=== PATIENT | female | born 1990 | race Caucasian/White ===

== ENCOUNTER 2021-02-11 13:05 | Emergency (ER) | payer OTHER ==
[~2021-02-11 13:05] MED LIST: PERCOCET 5-3251 EACH PO
[2021-02-11 14:49] LABS: BASOPHIL 0.2 % (0-2); EOSINOPHIL 0 % (0-5); HCT 39.1 % (37.0-47.0); HGB 11.9 g/dl (12.5-16.0); LYMPHOCYTE 20.9 % (15-48); MCH 23.2 pg (25.0-31.0); MCHC 30.4 g/dL (32.0-36.0); MCV 76.1 fL (78.0-100.0); MONOCYTE 4.8 % (0-12); MPV 10.4 fL (6.0-9.5); NEUTROPHIL 73.7 % (41-80); NRBC 0; PLT 212 K/uL (150-400); RBC 5.14 M/uL (4.20-5.40); RDW 15.9 % (11.5-14.0); WBC 4.6 K/uL (4.0-10.5)
[2021-02-11 15:11] LABS: BUN/CREAT RATIO (CALC) 10.4 RATIO; CREATININE 0.77 mg/dL (0.51-0.95)
[2021-02-11 15:16] LABS: LACTIC ACID 1.2 mmol/L (0.4-1.9)
[2021-02-11] MEDS ORDERED: TESSALON PERLE100 M1 PO (17:43)
[2021-02-11] MEDS ORDERED: ZOFRAN4 M1 PO (19:44)
== END 2021-02-11 20:26 | disposition home or self-care (01) ==
LOC: FER 13:05
PROVIDERS: Internal Medicine
DX: U07.1 COVID-19 (principal); J12.82 Pneumonia due to coronavirus disease 2019; E87.6 Hypokalemia; R42 Dizziness and giddiness; E66.9 Obesity, unspecified; Z23 Encounter for immunization; Z88.0 Allergy status to penicillin
CPT/HCPCS: 36415; 36600; 71045; 71275; 80048; 82803; 83605; 84145; 85025; 87040; J3475; J7050; J7120; M0243; Q0244; Q9967